=== PATIENT | male | born 1995 | race Two or more races ===

== ENCOUNTER 2016-11-26 | Emergency (ER) | payer SELFPAY ==
[~2016-11-26] MED LIST: AMOXICILLIN500 M1 PO; AMOXICILLIN875 MG PO; ATIVAN1 M2 PO; CONCERTA; IBUPROFEN800 MG PO; LAMICTAL25 M2 PO; LORAZEPAM1 M1 PO; NORCO 5-325 TA1 EACH PO; PENICILLIN PO; PRILOSEC OTC20 M1 PO; RISPERDAL; ZITHROMAX250 MG PO
[2016-11-26] MEDS ORDERED: NORCO 5/3251 TAB PO (16:36)
[2016-11-26] MEDS ORDERED: PENICILLIN V P500 M1 PO (16:36)
[2016-11-26] MEDS ORDERED: IBUPROFEN600 M1 PO (16:36)
== END 2016-11-26 16:55 ==
DX: J02.9 Acute pharyngitis, unspecified (principal); K04.7 Periapical abscess without sinus; F41.9 Anxiety disorder, unspecified; F17.200 Nicotine dependence, unspecified, uncomplicated

== ENCOUNTER 2016-11-26 | Emergency (ER) | payer SELFPAY ==
[2016-11-26] MEDS ORDERED: NORCO 5/3251 TAB PO (16:36)
[2016-11-26] MEDS ORDERED: PENICILLIN V P500 M1 PO (16:36)
[2016-11-26] MEDS ORDERED: IBUPROFEN600 M1 PO (16:36)
== END 2016-11-26 12:10 ==
DX: R09.89 Other specified symptoms and signs involving the circulatory and respiratory systems (principal); R13.10 Dysphagia, unspecified; F17.200 Nicotine dependence, unspecified, uncomplicated